=== PATIENT | female | born 1960 | race Caucasian/White ===

== ENCOUNTER → 2016-11-03 | Day surgery (SDC) | payer OTHER ==
[~2016-11-03] MED LIST: ALEVE PO; ALEVE220 M1 PO; HYDROCODON-ACE1 EAC5 PO; HYDROCODON-ACE1 EAC7 PO; LISINOPRIL5 MG PO; MULTI-VITAMIN1 EAC1 PO; OMEPRAZOLE+2 MG/1 ML; OMEPRAZOLE20 M1 PO; ONDANSETRON HCL4 MG PO; PERCOCET 10/3251 TAB PO; SUMATRIPTAN SU100 MG PO; TOPIRAMATE50 MG PO
--- NOTE | ~2016-11-03 | OR ---
Unit #: [id number] #: [id number] Patient: IRAIDA JO [id number] [address] [place], [place] [address] [id number] O MR#: [id number] NAME: IRAIDA JO ROOM: Date of Procedure: Admission Date: 11/03/2016 Surgeon: Eladoi Bass M.D. : 1960 Attending Physician: Eladio Bass M.D. Primary Care Physician: Micky Caceres Jr., D.O. PROCEDURE OPERATIVE NOTE PREOPERATIVE DIAGNOSIS Back pain, lumbar facet disease, lumbar spondylosis. POSTOPERATIVE DIAGNOSIS Back pain, lumbar facet disease, lumbar spondylosis. PROCEDURE PERFORMED Lumbar facet injection x2 levels with intravenous sedation under fluoroscopic guidance for needle localization. HISTORY The patient is a 55-year-old female with return of back pain due to significant L3-4 and 4-5 facet disease. She was last treated about three months ago with facet injections and did fairly well. She (1) the pain and plans to repeat the injections today. PROCEDURE The patient was placed in a prone position. Standard monitors were applied. Sterile prep and drape of the lumbar area was performed. 2 mg of versed were given for sedation and anxiolysis which were adequate. Vital signs remained stable. Sterile prep and drape then of the lumbar area was performed. The skin then overlying the left side at L3-4 and 4-5 facet joints was localized with 1% lidocaine. A 23-gauge [place] Spinal needle was then advanced with fluoroscopic guidance bringing the needle tip to the edge of the respective facet joint. After confirming proper positioning, a dose of 1 mL of a mixture of 80 mg of Depo-Medrol and 3 mL of 0.25% bupivacaine were deposited. [place] were flushed to remove the exact same procedure and then repeated on the right a the L3-4 and 4-5 levels and fluoroscopy was used to confirm proper needle tip positioning within the edge of those respective facet joints. 1 mL of the mixture of 80 mg of Depo-Medrol and 3 mL of 0.25% bupivacaine was injected in each of those joints as well and the needles were flushed to remove. The patient tolerated the procedure otherwise well and was discharged to the recovery room in stable condition. Dictated by... Eladio Bass M.D. [facility]/haroon Unit #: [id number] #: [id number] Patient: IRAIDA JO TD: 11/03/2016 13:07 JOB #: [id number] PROCEDURE OPERATIVE NOTE Page 1 of 1 X Eladio Bass MD X PROCEDURE OPERATIVE NOTE
== END | disposition home or self-care (01) ==
LOC: CCSC 11:40
DX: M47.816 Spondylosis without myelopathy or radiculopathy, lumbar region (principal); M53.86 Other specified dorsopathies, lumbar region; I10 Essential (primary) hypertension
CPT/HCPCS: J1040; J2250